=== PATIENT | female | born 1975 | race Caucasian/White ===

== ENCOUNTER 2017-12-22 19:33 | Emergency (ER) | payer MEDICAID, OTHER ==
[~2017-12-22] VITALS: Ht 170.2 cm; Wt 86.2 kg
[2017-12-22] MEDS ORDERED: LEVO125T6 PO (19:47)
[2017-12-22] MEDS ORDERED: FURO-125 PO (19:47)
[2017-12-22 20:02] LABS: BASOPHILS % (AUTO) 0 % (0-10); EOSINOPHILS % (AUTO) 0 % (0-10); HEMATOCRIT 40 % (35-52); HEMOGLOBIN 14.1 G/DL (11.5-16.0); LYMPHOCYTES # (AUTO) 2.6 X 10^3 (1.0-4.0); LYMPHOCYTES % (AUTO) 20 % (12-44); MEAN CORPUSCULAR HEMOGLOBIN 29 PG (25-34); MEAN CORPUSCULAR HGB CONC 36 G/DL (32-36); MEAN CORPUSCULAR VOLUME 82 FL (80-99); MEAN PLATELET VOLUME 10.2 FL (7.4-10.4); MONOCYTES # (AUTO) 0.8 X 10^3 (0.0-1.0); MONOCYTES % (AUTO) 6 % (0-12); NEUTROPHILS # (AUTO) 9.4 X 10^3 (1.8-7.8); NEUTROPHILS % (AUTO) 74 % (42-75); PLATELET COUNT 370 10^3/uL (130-400); RED BLOOD COUNT 4.82 10^6/uL (4.35-5.85); RED CELL DISTRIBUTION WIDTH 14.2 % (10.0-14.5); WHITE BLOOD COUNT 12.7 10^3/uL (4.3-11.0)
[2017-12-22 20:22] LABS: ERYTHROCYTE SEDIMENTATION RATE 1 MM/HR (0-20)
[2017-12-22 20:27] LABS: ALANINE AMINOTRANSFERASE 24 U/L (0-55); ALBUMIN 4.2 GM/DL (3.2-4.5); ALKALINE PHOSPHATASE 62 U/L (40-136); BILIRUBIN,TOTAL 0.6 MG/DL (0.1-1.0); BUN/CREATININE RATIO 24; CALCIUM 9.2 MG/DL (8.5-10.1); CARBON DIOXIDE 25 MMOL/L (21-32); CHLORIDE 106 MMOL/L (98-107); CREATININE SERUM 0.75 MG/DL (0.60-1.30); GFR ESTIMATED > 60; GLUCOSE 143 MG/DL (70-105); POTASSIUM 3.3 MMOL/L (3.6-5.0); SODIUM 143 MMOL/L (135-145); TOTAL PROTEIN 6.9 GM/DL (6.4-8.2)
--- NOTE | 2017-12-22 20:49 | ED Lower Extremity ---
General Chief Complaint: Lower Extremity Stated Complaint: L ANKLE/FOOT SWELLING AND PAIN Nursing Triage Note: PT PRESENTS TO ER WITH COMPLAINT OF LEFT ANKLE PAIN AND SWELLING. DENIES INJURY. STATES SHE HAD AN XRAY 4 MONTHS AGO, BUT DID NOT HAVE ANY BROKEN BONES. STATES SHE HAS BEEN ON LASIX AND STEROIDS TO HELP THE SWELLING, BUT NEITHER HAVE WORKED. STATES SHE IS SCHEDULED TO HAVE A DOPPLER ON THE . Nursing Sepsis Screen: No Definite Risk Source: patient Exam Limitations: no limitations History of Present Illness Date Seen by Provider: Dec 22, 2017 Time Seen by Provider: 19:40 Initial Comments This 42-year-old woman presents to the emergency room with complaints of pain over the dorsum of the left midfoot. She has associated swelling. Symptoms have been present for several months. She had an x-ray performed at an urgent care and states that was negative. Symptoms have been worsening since that time. She has seen her primary care provider who started Lasix and steroids. Neither seem to be helping. She has an ultrasound for the left lower extremity scheduled for January 01. Pain is worse with ambulation. She has some radiation of the pain toward the medial malleolus. She denies any known injury of any kind. Allergies and Home Medications Allergies Coded Allergies: No Known Drug Allergies (Unverified , 12/22/17) Patient Home Medication List Home Medication List Reviewed: Yes Constitutional: no symptoms reported; No fever EENTM: no symptoms reported Respiratory: no symptoms reported Cardiovascular: no symptoms reported Gastrointestinal: no symptoms reported Genitourinary: no symptoms reported : No Musculoskeletal: see HPI Skin: no symptoms reported Psychiatric/Neurological: No Symptoms Reported Past Hmvmscw-Zknjkn-Ryhaql Hx Patient Social History Alcohol Use: Denies Use Recreational Drug Use: No Smoking Status: Never a Smoker Recent Foreign Travel: No Contact w/Someone Who Travel: No Recent Infectious Disease Expo: No Recent Hopitalizations: No Immunizations Up To Date PED Vaccines UTD: Yes Seasonal Allergies Seasonal Allergies: No Past Medical History Surgeries: Yes Section, Hysterectomy Respiratory: No Cardiac: No Neurological: No Genitourinary: No Gastrointestinal: No Musculoskeletal: No Endocrine: Yes (GRAVES) Hypothyroidsim HEENT: No Cancer: No Psychosocial: No Integumentary: No Blood Disorders: No Physical Exam Vital Signs Vital Signs - First Documented 12/22/17 19:36 Pulse 82 Resp 20 B/P (MAP) 135/81 (99) Pulse Ox 97 O2 Delivery Room Air Capillary Refill : Less Than 3 Seconds Height, Weight, BMI Height: 5'7.00" Weight: 190lbs. oz. 86.190735ld; BMI Method:Stated General Appearance: WD/WN, no apparent distress HEENT: normal ENT inspection Cardiovascular: regular rate, rhythm, no edema, no gallop Respiratory: lungs clear, normal breath sounds, no respiratory distress Legs: bilateral leg non-tender, bilateral leg normal inspection, bilateral leg normal range of motion, bilateral leg no evidence of injury, bilateral leg other (negative Ayesha) Knees: bilateral knee non-tender, bilateral knee normal inspection, bilateral knee normal range of motion, bilateral knee no evidence of injury Ankles: right ankle non-tender, right ankle normal inspection; left ankle bone tenderness (mild tenderness over the inferior portion of the medial malleolus) Feet: right foot non-tender, right foot normal inspection, right foot normal range of motion, right foot no evidence of injury; left foot bone tenderness, left foot pain, left foot swelling, left foot other (tenderness and minimal erythema near an area of edema over the proximal dorsum of the left foot) Neurologic/Tendon: normal sensation, normal motor functions, normal tendon functions 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2 10.0-14.5 % Platelet Count 370 130-400 10^3/uL Mean Platelet Volume 10.2 7.4-10.4 FL Neutrophils (%) (Auto) 74 42-75 % Lymphocytes (%) (Auto) 20 12-44 % Monocytes (%) (Auto) 6 0-12 % Eosinophils (%) (Auto) 0 0-10 % Basophils (%) (Auto) 0 0-10 % Neutrophils # (Auto) 9.4 H 1.8-7.8 X 10^3 Lymphocytes # (Auto) 2.6 1.0-4.0 X 10^3 Monocytes # (Auto) 0.8 0.0-1.0 X 10^3 Eosinophils # (Auto) 0.0 0.0-0.3 10^3/uL Basophils # (Auto) 0.0 0.0-0.1 10^3/uL Erythrocyte Sedimentation Rate 1 0-20 MM/HR D-Dimer < 0.27 0.00-0.49 UG/ML Sodium Level 143 135-145 MMOL/L Potassium Level 3.3 L 3.6-5.0 MMOL/L Chloride Level 106 98-107 MMOL/L Carbon Dioxide Level 25 21-32 MMOL/L Anion Gap 12 5-14 MMOL/L Blood Urea Nitrogen 18 7-18 MG/DL Creatinine 0.75 0.60-1.30 MG/DL Estimat Glomerular Filtration Rate > 60 BUN/Creatinine Ratio 24 Glucose Level 143 H 70-105 MG/DL Uric Acid 5.0 2.6-7.2 MG/DL Calcium Level 9.2 8.5-10.1 MG/DL Total Bilirubin 0.6 0.1-1.0 MG/DL Aspartate Amino Transf (AST/SGOT) 17 5-34 U/L Alanine Aminotransferase (ALT/SGPT) 24 0-55 U/L Alkaline Phosphatase 62 40-136 U/L C-Reactive Protein High Sensitivity 0.03 0.00-0.50 MG/DL Total Protein 6.9 6.4-8.2 GM/DL Albumin 4.2 3.2-4.5 GM/DL My Orders Orders - PARVEEN LOCO MD Cbc With Automated Diff (12/22/17 19:49) Comprehensive Metabolic Panel (12/22/17 19:49) Hs C Reactive Protein (12/22/17 19:49) Fibrin Degradation Products (12/22/17 19:49) Erythrocyte Sedimentation Rate (12/22/17 19:49) Uric Acid (12/22/17 19:49) Saline Lock/Iv-Start (12/22/17 19:49) Foot, Left, 3 Views (12/22/17 20:05) Vital Signs/I&O 12/22/17 12/22/17 19:36 21:50 Pulse 82 82 Resp 20 20 B/P (MAP) 135/81 (99) 135/81 (99) Pulse Ox 97 97 O2 Delivery Room Air Blood Pressure Mean: 99 Progress Progress Note : Progress Note Patient was assessed with both lab and x-ray. X-ray revealed no notable bony abnormalities. Labs ordered to assess for DVT, uric acid, and infection. There were no significant abnormalities. Mild leukocytosis was felt to be secondary to recent steroid use. Patient was offered further imaging with CT scan. Alternatively it was suggested that she see a specialist such as an orthopedic surgeon or floor cleaner before investing in further imaging. Patient elects to wait and seek referral to a specialist. Diagnostic Imaging Diagonstic Imaging: Xray Plain Films/CT/US/NM/MRI: other (Left foot) Comments X-ray of the left foot viewed by me and report reviewed. See report below: NAME: LAINE DICKENS [facility] REC#: [id number] PT STATUS: REG ER : 1975 PHYSICIAN: PARVEEN LOCO MD ADMIT DATE: 12/22/17/ER Draft Date of Exam:12/22/17 FOOT, LEFT, 3 VIEWS Clinical Indication: Patient complains of left foot pain and swelling. Onset 4 months ago. No history of trauma or injury. Exam: X-ray of the left foot, 3 views. Comparison: None. Findings: There is no evidence of acute fracture or dislocation. There are moderately hypertrophic calcaneal spurs at the plantar and Achilles attachments. The remainder of the foot is unremarkable. Impression: 1: There is no acute fracture or dislocation. 2: There is moderately hypertrophic spurs involving the calcaneus. Dictated on workstation # [id number] Dict: 12/22/172047 Trans: 12/22/172104 [facility] [id number] Interpreted by: GERRI ALCARAZ MD Departure Impression Primary Impression: Left foot pain Additional Impression: Swelling of left foot Disposition: 01 HOME, SELF-CARE Condition: Stable Departure-Patient Inst. Decision time for Depature: 19:25 Referrals: ANGELINA SEVILLA DPM [place] DPM NO,LOCAL PHYSICIAN (PCP) Primary Care Physician NAYA JIMENEZ DPM Patient Instructions: NO INSTRUCTIONS GIVEN Add. Discharge Instructions: Follow-up with a floor cleaner is recommended. You may need a referral from your primary care provider for the floor cleaner depending on your insurance requirements. Please contact your insurance provider and your primary care provider to help make arrangements. Screening for blood clot (DVT) was negative today by use of the d-dimer blood test. Consider canceling the venous Doppler scheduled for January 01. You may use ibuprofen up to 600 mg every 6 hours and/or Tylenol (acetaminophen) up to 1000 mg every 6 hours as needed for pain. Elevate your foot at rest to help reduce swelling. Wear supportive well cushioned shoes. Return to care if you have worsening symptoms. All discharge instructions reviewed with patient and/or family. Voiced understanding. PARVEEN LOCO MD Dec 22, 2017 20:49
--- NOTE | 2017-12-22 21:05 | Diagnostic Imaging Report ---
Clinical Indication: Patient complains of left foot pain and swelling. Onset 4 months ago. No history of trauma or injury. Exam: X-ray of the left foot, 3 views. Comparison: None. Findings: There is no evidence of acute fracture or dislocation. There are moderately hypertrophic calcaneal spurs at the plantar and Achilles attachments. The remainder of the foot is unremarkable. Impression: 1: There is no acute fracture or dislocation. 2: There is moderately hypertrophic spurs involving the calcaneus. Dictated by: Dictated on workstation # [id number]
[2017-12-22 21:50] VITALS: BP 135/81
== END 2017-12-22 21:50 | disposition home or self-care (01) ==
LOC: ER 19:35
DX: M79.672 Pain in left foot (principal); M79.89 Other specified soft tissue disorders; E03.9 Hypothyroidism, unspecified; Z87.59 Personal history of other complications of pregnancy, childbirth and the puerperium; Z90.710 Acquired absence of both cervix and uterus
CPT/HCPCS: 36415; 73630; 80053; 84550; 85025; 85379; 85652; 86141

== ENCOUNTER 2018-05-20 16:49 | Emergency (ER) | payer BC, MEDICAID ==
[~2018-05-20] VITALS: Ht 170.2 cm; Wt 90.7 kg
[~2018-05-20 16:49] MED LIST: FURO-125 PO; LEVO125T6 PO
--- OUTSIDE RECORDS SUMMARY | 2018-05-20 16:54 | XMS REPORT ---
Author Author VIDHI MO Organization [facility] Address [address] [place] [address] Care Team Providers Care Capacitor Repairer Name Role Phone VIDHI MO Unavailable PROBLEMS Type Condition ICD9-CM Code [id number] Code Onset Dates Condition Status SNOMED Code Problem Arthritis M19.90 Active 8902491 ALLERGIES No Known Allergies ENCOUNTERS Encounter Location Date Diagnosis [facility] [address] [address] May, Fatigue R53.83 [facility] [id number] [place] [phone] Apr, Lower back pain M54.5 and Acute bilateral thoracic back pain M54.6 [facility] [id number] [place] [phone] Jan, Family history of lupus erythematosus Z84.0 ; Localized edema R60.0 and Arthritis M19.90 [facility] [id number] [place] [phone] Dec, Acute effusion of both middle ears H65.193 and Edema of left foot R60.0 IMMUNIZATIONS No Known Immunizations SOCIAL HISTORY Never Assessed REASON FOR VISIT Fatigue, tiredness, cold intolerance, hair loss, breast discomfort for the past couple of months.-awoods PLAN OF CARE Activity Details Follow Up w/ PCP pending lab results Reason:fatigue Pending Test CMP Pending Test CBC Pending Test ESTRADIOL Pending Test TSH VITAL SIGNS Height 67 in 2018-05-15 Weight 218.9 lbs 2018-05-15 Temperature 98.0 degrees Fahrenheit 2018-05-15 Heart Rate 86 bpm 2018-05-15 Respiratory Rate 20 2018-05-15 BMI 34.28 kg/m2 2018-05-15 Blood pressure systolic 112 mmHg 2018-05-15 Blood pressure diastolic 72 mmHg 2018-05-15 MEDICATIONS Medication Instructions Dosage Frequency Start Date End Date Duration Status Levothyroxine Sodium 125 mcg Orally Once a day 1 tablet on an empty stomach in the morning 24h Active Motrin 600 by mouth daily 1 24h Active Spironolactone 25 MG Orally Once a day 1 tablet 24h 30 Active RESULTS No Results PROCEDURES Procedure Date Ordered Result Body Site LAB NOT BILLED BY [facility] May 15, 2018 VENELLEN, ROUTINE* May 15, 2018 INSTRUCTIONS MEDICATIONS ADMINISTERED No Known Medications MEDICAL (GENERAL) HISTORY Type Description Date Medical History Lower Extremity Swelling Medical History Connective Tissue Disease Surgical History [facility] 2014 Surgical History C-[facility] 2003 Hospitalization History Posrt op Hospitalization History heart palpitations 2015
--- OUTSIDE RECORDS SUMMARY | 2018-05-20 16:54 | XMS REPORT ---
Author Author GENARO CESAR Organization [facility] Address [address] [place] [address] Care Team Providers Care Metallurgical Lab Technician Name Role Phone GENARO CESAR Unavailable PROBLEMS Type Condition ICD9-CM Code [id number] Code Onset Dates Condition Status SNOMED Code Problem Arthritis M19.90 Active 8340445 ALLERGIES No Known Allergies ENCOUNTERS Encounter Location Date Diagnosis [facility] [id number] [place] [phone] Jan, Family history of lupus erythematosus Z84.0 ; Localized edema R60.0 and Arthritis M19.90 [facility] [id number] [place] [phone] Dec, Acute effusion of both middle ears H65.193 and Edema of left foot R60.0 IMMUNIZATIONS No Known Immunizations SOCIAL HISTORY Never Assessed REASON FOR VISIT est care Pt in to establish care, states she has a fluid retention problem in Lt foot which she takes lasix for, has had problem for about 6 months, YANNI Fenton PLAN OF CARE VITAL SIGNS Height 67 in 2018-01-10 Weight 203.4 lbs 2018-01-10 Temperature 97.8 degrees Fahrenheit 2018-01-10 Heart Rate 72 bpm 2018-01-10 Respiratory Rate 18 2018-01-10 BMI 31.85 kg/m2 2018-01-10 Blood pressure systolic 122 mmHg 2018-01-10 Blood pressure diastolic 68 mmHg 2018-01-10 MEDICATIONS Medication Instructions Dosage Frequency Start Date End Date Duration Status Flonase 50 MCG/ACT Nasally Once a day 1 spray in each nostril 24h Dec, 30 day(s) Not-Taking Zyrtec Allergy 10 MG Orally Once a day 1 tablet 24h Dec, Jan, 30 day(s) Not-Taking Lasix 20 mg Orally Once a day 1 tablet 24h Active Levothyroxine Sodium 125 mcg Orally Once a day 1 tablet on an empty stomach in the morning 24h Active PredniSONE 20 MG Orally Once a day 2 tablets 24h Jan, 6 Jan, 2018 05 days Active Spironolactone 25 MG Orally Once a day 1 tablet 24h Jan, Active Potassium Bicarb-Citric Acid 10 MEQ Orally Once a day 1 tablet 24h Active RESULTS No Results PROCEDURES Procedure Date Ordered Result Body Site VENIPUNCT, ROUTINE* Jan 10, 2018 [facility] Jan 10, 2018 INSTRUCTIONS MEDICATIONS ADMINISTERED No Known Medications MEDICAL (GENERAL) HISTORY Type Description Date Medical History Lower Extremity Swelling Medical History Connective Tissue Disease Surgical History [facility] 2014 Surgical History C-secion 2003 Hospitalization History Posrt op Hospitalization History heart palpitations 2015
--- OUTSIDE RECORDS SUMMARY | 2018-05-20 16:54 | XMS REPORT ---
Author Author FRANK DOLAN Organization [facility] Address [address] [place] [address] Care Team Providers Care Engineering Department Chair Name Role Phone FRANK DOLAN Unavailable PROBLEMS Type Condition ICD9-CM Code [id number] Code Onset Dates Condition Status SNOMED Code Problem Arthritis M19.90 Active 6903931 ALLERGIES No Known Allergies ENCOUNTERS Encounter Location Date Diagnosis [facility] [address] [place], [place] [id number] [place] [phone] Apr, Lower back pain M54.5 and Acute bilateral thoracic back pain M54.6 [facility] [address] [phone] Jan, Family history of lupus erythematosus Z84.0 ; Localized edema R60.0 and Arthritis M19.90 [facility] [address] [address] Dec, Acute effusion of both middle ears H65.193 and Edema of left foot R60.0 IMMUNIZATIONS No Known Immunizations SOCIAL HISTORY Never Assessed REASON FOR VISIT lower back pain for the past 2 weeks. also reports some nausea et mild dysuria. reports sexual intercourse last noc et some blood in her underwear this am. doesnt have periods anymore. denies pain with intercourse. denies any chance for STDs. [email or web address] PLAN OF CARE Activity Details Follow Up prn Reason: Pending Test Xray : Chest 2 View (IN HOUSE) VITAL SIGNS Height 67 in 2018-05-04 Weight 221.6 lbs 2018-05-04 Temperature 98.5 degrees Fahrenheit 2018-05-04 Heart Rate 80 bpm 2018-05-04 Respiratory Rate 20 2018-05-04 BMI 34.70 kg/m2 2018-05-04 Blood pressure systolic 120 mmHg 2018-05-04 Blood pressure diastolic 74 mmHg 2018-05-04 MEDICATIONS Medication Instructions Dosage Frequency Start Date End Date Duration Status Potassium Bicarb-Citric Acid 10 MEQ Orally Once a day 1 tablet 24h Active Levothyroxine Sodium 125 mcg Orally Once a day 1 tablet on an empty stomach in the morning 24h Active RESULTS Name Result Date Reference Range UA LONG DIP (IN HOUSE) 2018-05-04 Lot # [id number] Exp date 2018 12 31 Clarity clear Color yellow Odor none GLU negative LOUISE negative KET negative SG 1.025 BLO negative pH 5.5 Protein negative URO 0.2 NIT negative ANYA negative Lot # [id number] Exp date may 2018 PROCEDURES Procedure Date Ordered Result Body Site URINALYSIS, AUTO, W/O SCOPE May 04, 2018 X-RAY EXAM CHEST 2 VIEWS May 04, 2018 INSTRUCTIONS MEDICATIONS ADMINISTERED No Known Medications MEDICAL (GENERAL) HISTORY Type Description Date Medical History Lower Extremity Swelling Medical History Connective Tissue Disease Surgical History [facility] 2014 Surgical History C-secion 2004 Hospitalization History Posrt op Hospitalization History heart palpitations 2016
--- OUTSIDE RECORDS SUMMARY | 2018-05-20 16:54 | XMS REPORT ---
Author Author ALEXANDRO Lugo [facility] Address [address] [place] [address] Care Team Providers Care Assembler Leather Goods Name Role Phone ALEXANDRO Lugo Unavailable PROBLEMS Type Condition ICD9-CM Code HLP14-GO Code Onset Dates Condition Status SNOMED Code Problem Arthritis M19.90 Active 1182169 ALLERGIES No Known Allergies ENCOUNTERS Encounter Location Date Diagnosis [facility] [address] [facility] [id number] [address] Jan, Family history of lupus erythematosus Z84.0 ; Localized edema R60.0 and Arthritis M19.90 [facility] [address] [facility] [id number] [address] Dec, Acute effusion of both middle ears H65.193 and Edema of left foot R60.0 IMMUNIZATIONS No Known Immunizations SOCIAL HISTORY Never Assessed REASON FOR VISIT dizzy for 2 days, nausea, ringing in her ears. this all started monday...better yesterday...woke up this am feeling dizzy again. also reports her left foot is swollen. has had 2 negative xrays on this foot, been to an urgent care, et also to the ER...no diagnosis. mollyardnahed, no dizziness at the present time., meds verified via telephone with olivia keys on [address] in [place], [place]-spoke with osvaldo OLVERA [facility] Activity Details Follow Up prn Reason: VITAL SIGNS Height 67 in 2017-12-26 Weight 210.4 lbs 2017-12-26 Temperature 97.6 degrees Fahrenheit 2017-12-26 Heart Rate 64 bpm 2017-12-26 Respiratory Rate 18 2017-12-26 BMI 32.95 kg/m2 2017-12-26 Blood pressure systolic 126 mmHg 2017-12-26 Blood pressure diastolic 76 mmHg 2017-12-26 MEDICATIONS Medication Instructions Dosage Frequency Start Date End Date Duration Status Zyrtec Allergy 10 MG Orally Once a day 1 tablet 24h Dec, Jan, 30 day(s) Active Lasix 20 MG Orally Once a day 1 tablet 24h Active Potassium Bicarb-Citric Acid 10 MEQ Orally Once a day 1 tablet 24h Active Levothyroxine Sodium 125 MCG Orally Once a day 1 tablet on an empty stomach in the morning 24h Active Flonase 50 MCG/ACT Nasally Once a day 1 spray in each nostril 24h Dec, 30 day(s) Active RESULTS No Results PROCEDURES No Known procedures INSTRUCTIONS MEDICATIONS ADMINISTERED No Known Medications MEDICAL (GENERAL) HISTORY Type Description Date Medical History Lower Extremity Swelling Medical History Connective Tissue Disease Surgical History [facility] 2014 Surgical History C-secion 2004 Hospitalization History Posrt op Hospitalization History heart palpitations 2016
[2018-05-20] MEDS ORDERED: ASPIRIN 81 MG CHEW (CHILDREN'S ASA) PO ONE (17:00)
--- NOTE | 2018-05-20 17:03 | ED Chest Pain ---
General Stated Complaint: CHEST PAIN,LEFT ARM AND SHOULDER HURTING,WEAK Source: patient Exam Limitations: no limitations History of Present Illness Date Seen by Provider: May 20, 2018 Time Seen by Provider: 17:00 Initial Comments To ER accompanied by her per private vehicle with reports of chest pain. The chest pain is sharp left-sided and radiates to her left shoulder. She has had a slight nonproductive cough over the past few days. No fevers or chills. No shortness of breath. She is unable to identify any exacerbating or alleviating factors such as deep breathing or position change. Pain was most intense last night when she describes it as "very sharp". At this time she is pain-free. She is a nonsmoker, she is not diabetic, she has no personal history of heart disease and she has no known immediate family history of heart disease other than her grandmother. Primary care is [facility]. She did take a full dose aspirin this morning. Timing/Duration: changing over time Severity/Quality: moderate Location: central Radiation: shoulders Activities at Onset: none ASA po ORDER ENTRY CLERK: No NTG SL ORDER ENTRY CLERK: No Associated Symptoms: No back pain, No diaphoresis, No nausea/vomiting, No shortness of breath Allergies and Home Medications Allergies Coded Allergies: No Known Drug Allergies (Unverified , 12/22/17) Patient Home Medication List Home Medication List Reviewed: Yes Review of Systems Review of Systems Constitutional: see HPI; No chills, No fever EENTM: No Symptoms Reported Respiratory: See HPI, Cough Cardiovascular: See HPI, Chest Pain Gastrointestinal: No Symptoms Reported Genitourinary: No Symptoms Reported Musculoskeletal: no symptoms reported Skin: no symptoms reported Psychiatric/Neurological: No Symptoms Reported Endocrine: No Symptoms Reported Past Hjwrsds-Rupxty-Lhrllu Hx Patient Social History Recent Foreign Travel: No Contact w/Someone Who Travel: No Recent Hopitalizations: No Immunizations Up To Date PED Vaccines UTD: Yes Seasonal Allergies Seasonal Allergies: No Past Medical History Surgeries: Yes Section, Hysterectomy Respiratory: No Cardiac: No Neurological: No Genitourinary: No Gastrointestinal: No Musculoskeletal: No Endocrine: Yes (GRAVES) Hypothyroidsim HEENT: No Cancer: No Psychosocial: No Integumentary: No Blood Disorders: No Physical Exam Vital Signs Vital Signs - First Documented Capillary Refill : Height, Weight, BMI Height: 5'7.00" Weight: 190lbs. oz. [id number]; BMI Method:Stated General Appearance: No Apparent Distress, WD/WN Respiratory: Normal Breath Sounds, No Accessory Muscle Use, No Respiratory Distress Cardiovascular: Regular Rate, Rhythm, Normal Peripheral Pulses Gastrointestinal: Normal Bowel Sounds, Non Tender, Soft Extremity: Normal Capillary Refill, Normal Inspection Neurologic/Psychiatric: Alert, Oriented x3 Skin: Normal Color, Warm/Dry Progress/Results/Core Measures Results/Orders Lab Results Laboratory Tests Test 05/20/18 17:00 05/20/18 20:00 Range/Units White Blood Count 7.0 4.3-11.0 10^3/uL Red Blood Count 4.72 4.35-5.85 10^6/uL Hemoglobin 13.5 11.5-16.0 G/DL Hematocrit 39 35-52 % Mean Corpuscular Volume 83 80-99 FL Mean Corpuscular Hemoglobin 29 25-34 PG Mean Corpuscular Hemoglobin Concent 35 32-36 G/DL Red Cell Distribution Width 13.3 10.0-14.5 % Platelet Count 324 130-400 10^3/uL Mean Platelet Volume 10.1 7.4-10.4 FL Neutrophils (%) (Auto) 47 42-75 % Lymphocytes (%) (Auto) 43 12-44 % Monocytes (%) (Auto) 7 0-12 % Eosinophils (%) (Auto) 3 0-10 % Basophils (%) (Auto) 0 0-10 % Neutrophils # (Auto) 3.3 1.8-7.8 X 10^3 Lymphocytes # (Auto) 3.0 1.0-4.0 X 10^3 Monocytes # (Auto) 0.5 0.0-1.0 X 10^3 Eosinophils # (Auto) 0.2 0.0-0.3 10^3/uL Basophils # (Auto) 0.0 0.0-0.1 10^3/uL Prothrombin Time 13.2 12.2-14.7 SEC INR Comment 1.0 0.8-1.4 Activated Partial Thromboplast Time 31 24-35 SEC Sodium Level 140 135-145 MMOL/L Potassium Level 3.8 3.6-5.0 MMOL/L Chloride Level 107 98-107 MMOL/L Carbon Dioxide Level 21 21-32 MMOL/L Anion Gap 12 5-14 MMOL/L Blood Urea Nitrogen 14 7-18 MG/DL Creatinine 0.82 0.60-1.30 MG/DL Estimat Glomerular Filtration Rate > 60 BUN/Creatinine Ratio 17 Glucose Level 93 70-105 MG/DL Calcium Level 9.5 8.5-10.1 MG/DL Corrected Calcium 9.3 8.5-10.1 MG/DL Magnesium Level 2.5 H 1.8-2.4 MG/DL Total Bilirubin 0.4 0.1-1.0 MG/DL Aspartate Amino Transf (AST/SGOT) 20 5-34 U/L Alanine Aminotransferase (ALT/SGPT) 25 0-55 U/L Alkaline Phosphatase 64 40-136 U/L Myoglobin 23.9 10.0-92.0 NG/ML Troponin I < 0.30 <0.30 NG/ML B-Type Natriuretic Peptide 26.5 <100.0 PG/ML Total Protein 7.0 6.4-8.2 GM/DL Albumin 4.3 3.2-4.5 GM/DL Lipase 17 8-78 U/L My Orders Orders - GREGORIO WALKER APRN Cbc With Automated Diff (05/20/18 16:53) Magnesium (05/20/18 16:53) Chest 1 View, Ap/Pa Only (05/20/18 16:53) Ekg Tracing (05/20/18 16:53) Cardiac Profile 1 (05/20/18 16:53) Comprehensive Metabolic Panel (05/20/18 16:53) Myoglobin Serum (05/20/18 16:53) Protime With Inr (05/20/18 16:53) Partial Thromboplastin Time (05/20/18 16:53) O2 (05/20/18 16:53) Monitor-Rhythm Ecg Trace Only (05/20/18 16:53) Lipid Panel (05/21/18 06:00) Aspirin Chewable Tablet (Baby Aspirin Ch (05/20/18 17:00) Saline Lock/Iv-Start (05/20/18 16:53) Lipase (05/20/18 16:53) BNP (05/20/18 16:53) Myoglobin Serum (05/20/18 20:00) Troponin I (05/20/18 20:00) Ekg Tracing (05/20/18 20:00) Fentanyl Injection (Sublimaze Injection (05/20/18 20:15) Vital Signs/I&O 05/20/18 05/20/18 16:52 16:52 Temp 98.2 Pulse 75 Resp 18 B/P (MAP) 148/93 (111) Pulse Ox 99 O2 Delivery Room Air Room Air Departure Communication (Admissions) Her HEART score is 2 which correlates with a low risk of major adverse cardiac events. She will be appropriate for discharge and follow-up palpation. Impression Primary Impression: Chest pain Qualified Codes: R07.89 - Other chest pain Disposition: HOME, SELF-CARE Condition: Stable Departure-Patient Inst. Decision time for Depature: 20:11 Referrals: NO,LOCAL PHYSICIAN (PCP/Family) Primary Care Physician Patient Instructions: Chest Pain That Is Not Caused by the Heart (DC), Pleuritic Chest Pain (DC) Add. Discharge Instructions: 1. Call your doctor tomorrow make an appointment to be seen 2. Tylenol and Motrin for pain control 3. Return to ER for any concerns. GREGORIO WALKER APRN May 20, 2018 17:03
[2018-05-20 17:19] LABS: BASOPHILS % (AUTO) 0 % (0-10); EOSINOPHILS # (AUTO) 0.2 10^3/uL (0.0-0.3); EOSINOPHILS % (AUTO) 3 % (0-10); HEMATOCRIT 39 % (35-52); HEMOGLOBIN 13.5 G/DL (11.5-16.0); LYMPHOCYTES % (AUTO) 43 % (12-44); MEAN CORPUSCULAR HEMOGLOBIN 29 PG (25-34); MEAN CORPUSCULAR HGB CONC 35 G/DL (32-36); MEAN CORPUSCULAR VOLUME 83 FL (80-99); MEAN PLATELET VOLUME 10.1 FL (7.4-10.4); MONOCYTES # (AUTO) 0.5 X 10^3 (0.0-1.0); MONOCYTES % (AUTO) 7 % (0-12); NEUTROPHILS # (AUTO) 3.3 X 10^3 (1.8-7.8); NEUTROPHILS % (AUTO) 47 % (42-75); PLATELET COUNT 324 10^3/uL (130-400); RED BLOOD COUNT 4.72 10^6/uL (4.35-5.85); RED CELL DISTRIBUTION WIDTH 13.3 % (10.0-14.5)
[2018-05-20 17:31] LABS: PROTHROMBIN TIME PATIENT 13.2 SEC (12.2-14.7)
[2018-05-20 17:40] LABS: ALANINE AMINOTRANSFERASE 25 U/L (0-55); ALBUMIN 4.3 GM/DL (3.2-4.5); ALKALINE PHOSPHATASE 64 U/L (40-136); BILIRUBIN,TOTAL 0.4 MG/DL (0.1-1.0); BUN/CREATININE RATIO 17; CALCIUM 9.5 MG/DL (8.5-10.1); CARBON DIOXIDE 21 MMOL/L (21-32); CHLORIDE 107 MMOL/L (98-107); CREATININE SERUM 0.82 MG/DL (0.60-1.30); GFR ESTIMATED > 60; GLUCOSE 93 MG/DL (70-105); LIPASE 17 U/L (8-78); MAGNESIUM 2.5 MG/DL (1.8-2.4); POTASSIUM 3.8 MMOL/L (3.6-5.0); SODIUM 140 MMOL/L (135-145)
[2018-05-20 17:47] LABS: MYOGLOBIN SERUM 23.9 NG/ML (10.0-92.0)
--- NOTE | 2018-05-20 18:24 | Diagnostic Imaging Report ---
Examination: Frontal view of the chest Indication: Chest pain. Comparison: None. Findings: There is mild left basilar atelectasis. Lungs are otherwise clear and the pulmonary vasculature is normal. No pneumothorax or significant pleural effusion. The cardiomediastinal silhouette is normal. No acute osseous abnormality. Impression: No acute chest disease. Dictated by: Dictated on workstation # [id number]
[2018-05-20] MEDS ORDERED: fentaNYL INJECTION 100 MCG/2 ML AMP IVP ONE (20:15)
[2018-05-20 20:39] VITALS: BP 119/75
== END 2018-05-20 20:39 | disposition home or self-care (01) ==
LOC: EDUNIT# 16:49 → ER 16:50
DX: R07.89 Other chest pain (principal); E03.9 Hypothyroidism, unspecified; Z98.890 Other specified postprocedural states; Z90.710 Acquired absence of both cervix and uterus
CPT/HCPCS: 36415; 71045; 80053; 83690; 83735; 83874; 83880; 84484; 85025; 85610; 85730; 93005; 93041